=== PATIENT | female | born 1995 | race Caucasian/White ===

== ENCOUNTER → 2019-04-08 | Outpatient (CLI) | payer BC ==
[~2019-04-08] MED LIST: DICYCLOMINE HCL10 MG PO; ZYRTEC10 M3 PO
--- NOTE | 2019-04-08 14:31 | Diagnostic Imaging Report ---
EXAMINATION: Transabdominal pelvic ultrasound. CLINICAL INDICATION: COMPARISON: DISCUSSION: Transverse and sagittal transabdominal images were obtained of the pelvis. The uterus is anteflexed and normal in size measuring 7.2 x 4.2 x 5.2 cm. The endometrial stripe is homogeneous, normal in thickness and measures 0.8 centimeters. The ovaries are normal in size and echogenicity. The right ovary measures 3.4 x 3.1 x 3.1 centimeters and contains several small follicles. The left ovary measures 3 x 1.9 x 2.5 centimeters and contains several small follicles. No free fluid or pelvic masses are seen. IMPRESSION: Unremarkable transabdominal pelvic ultrasound. Signed by: Dr. Owen Yun M.D. on 04/08/2019 2:28 PM
== END ==
LOC: US 13:41
PROVIDERS: ATTEND Family Medicine
DX: E28.2 Polycystic ovarian syndrome (principal)
CPT/HCPCS: 76856

== ENCOUNTER → 2020-08-16 | Outpatient (CLI) | payer BC ==
--- NOTE | 2020-08-16 16:27 | Diagnostic Imaging Report ---
EXAM: US ABDOMEN COMPLETE DATE: 08/16/2020 3:42 PM INDICATION: ^RIGHT SIDED ABDOMINAL PAIN COMPARISON: None TECHNIQUE: Transverse and longitudinal ulloa scale and color doppler sonographic images of the abdomen were obtained. FINDINGS: LIVER 13.9 cm in the right midclavicular line. Normal echogenicity of the liver with normal contour, no masses. SPLEEN 11.3 cm in maximum diameter. Normal echogenicity, no masses. GALLBLADDER Surgically absent. BILE DUCTS No intra nor extra-hepatic biliary dilation. Common bile duct measures 0.4cm PANCREAS: Visualized portions are normal. RIGHT KIDNEY: 10.3 cm Echogenicity: Normal Collecting System: No hydronephrosis Stones: None Cyst/Mass: None LEFT KIDNEY: 10.3 cm Echogenicity: Normal Collecting System: No hydronephrosis Stones: None Cyst/Mass: None VESSELS: Aorta: Visualized portions are within normal size limits Inferior Vena Cava: Visualized portions are normal Main Portal Vein: 1.3 cm, normal size with hepatopetal flow. FREE FLUID: None IMPRESSION: Post surgical changes from cholecystectomy. Otherwise unremarkable abdominal ultrasound. No biliary dilatation is noted. Signed by: Quoc Hodges MD on 08/16/2020 4:23 PM
--- NOTE | 2020-08-16 16:40 | Diagnostic Imaging Report ---
HISTORY : Right pelvic pain. Positive ovarian syndrome. COMPARISON : Ultrasound dated 04/08/2019 Comment: Ultrasound examination of the pelvis was performed transabdominally. The uterus is homogeneous in echotexture and anteverted. The uterus measures 6.5 x 3.2 x 4.3 cm. The endometrial stripe appears unremarkable and measures 0.4 cm in maximum thickness. The right ovary measures 3.4 x 2.5 x 2.5 cm. The left ovary measures 3.8 x 2.0 x 2.6 cm. Small bilateral subcentimeter peripheral follicles are noted within the ovaries. There is no evidence of fluid in the cul-de-sac. IMPRESSION : Limited transabdominal evaluation only. 1. Unremarkable ultrasound of the uterus. 2. The ovaries are normal in size with multiple peripheral subcentimeter cysts/follicles which can be seen in patients with polycystic ovarian syndrome. Findings are not diagnostic. Signed by: Quoc Hodges MD on 08/16/2020 4:37 PM
== END ==
LOC: US 14:48
PROVIDERS: ATTEND Family Medicine
DX: R10.9 Unspecified abdominal pain (principal); R10.2 Pelvic and perineal pain
CPT/HCPCS: 76700; 76856

== ENCOUNTER → 2020-08-31 | Day surgery (SDC) | payer BC, OTHER ==
[~2020-08-31] MED LIST changes: +CEFAZOLIN SOD 1 GM/NS 50ML 50 ML IV ONE; +FENTANYL CITRATE/PF 100MCG/2 ML INJ ONE; +LEVOTHYROXINE75 MCG PO; +LIDOCAINE HCL 2% LOCAL INJ 5 ML SDV VIAL INJ ONE; +METOCLOPRAMIDE HCL 10 MG/2ML VIAL ONE; +MIDAZOLAM HCL 2 MG/2 ML VIAL ONE; +PANTOPRAZOLE 40 MG 10ML VIAL ONE
[2020-08-31 17:20] VITALS: BP 95/49
== END | disposition home or self-care (01) ==
LOC: OR 13:03
PROVIDERS: ATTEND Internal Medicine Gastroenterology
DX: K29.70 Gastritis, unspecified, without bleeding (principal); K31.89 Other diseases of stomach and duodenum; K20.90 Esophagitis, unspecified without bleeding; K21.9 Gastro-esophageal reflux disease without esophagitis; Z90.3 Acquired absence of stomach [part of]; K59.00 Constipation, unspecified; E03.9 Hypothyroidism, unspecified; Z98.84 Bariatric surgery status; Z90.49 Acquired absence of other specified parts of digestive tract; Z91.012 Allergy to eggs; Z91.018 Allergy to other foods; Z01.812 Encounter for preprocedural laboratory examination; Z11.59 Encounter for screening for other viral diseases
CPT/HCPCS: 43239; 81025; C9113; J0690; J2001; J2250; J2765; J3010; U0002